=== PATIENT | female | born 1970 | race Two or more races ===

== ENCOUNTER 2016-10-01 10:54 | Emergency (ER) | payer BC ==
[~2016-10-01] VITALS: Ht 160 cm; Wt 84.4 kg
[2016-10-01 11:10] VITALS: BP 134/80
--- NOTE | 2016-10-01 12:15 | PHYS DOC ---
Past Medical History Past Medical History: Diabetes-Type II, Hypertension Past Surgical History: , Tubal ligation Alcohol Use: None Drug Use: None Adult General Chief Complaint Chief Complaint: MECHANICAL FALL HPI HPI Patient is a 46 year old female presents to the emergency department stating that she had fallen at work when she went to get out of her car. She states that she has having lower back pain and coccyx pain and discomfort. She is also having some right shoulder pain and discomfort. She continues to state that when she had gone to the bathroom and had a bowel movement that she had some blood in her stool. This just happened once. She denies any lightheadedness dizziness or any loss of consciousness. She denies any loss of bowel or bladder. [place] any numbness or tingling down lower extremities. Review of Systems Review of Systems Constitutional: Denies fever or chills [] Eyes: Denies change in visual acuity, redness, or eye pain [] HENT: Denies nasal congestion or sore throat [] Respiratory: Denies cough or shortness of breath [] Cardiovascular: No additional information not addressed in HPI [] Musculoskeletal: lower back and sacrum pain, right shoulder pain Integument: Denies rash or skin lesions [] Neurologic: Denies headache, focal weakness or sensory changes [] Allergies Allergies Allergies Coded Allergies Type Severity Reaction Last Updated Verified No Known Drug Allergies 10/01/16 No Physical Exam Physical Exam Constitutional: Well developed, well nourished, no acute distress, non-toxic appearance. [] HENT: Normocephalic, atraumatic, bilateral external ears normal, oropharynx moist, no oral exudates, nose normal. [] Eyes: PERRLA, EOMI, conjunctiva normal, no discharge. [] Neck: Normal range of motion, no tenderness, supple, no stridor. [] Cardiovascular:Heart rate regular rhythm, no murmur [] Lungs & Thorax: Bilateral breath sounds clear to auscultation [] Skin: Warm, dry, no erythema, no rash. [] Back: No cervical spine or thoracic spine tenderness, step-offs no deformities and no crepitus noted. Patient did have a lumbar and sacral pain and discomfort. There were no step-offs deformities or crepitus noted. Extremities: Right shoulder tenderness, no cyanosis, no clubbing, ROM intact, no edema. Patient with full range of motion peripheral pulses 2+ cap refill brisk less than 2 seconds. Neurologic: Alert and oriented X 3, normal motor function, normal sensory function, no focal deficits noted. [] Psychologic: Affect normal, judgement normal, mood normal. [] Current Patient Data Vital Signs Vital Signs Date Time Temp Pulse Resp B/P Pulse Ox O2 Delivery O2 Flow Rate FiO2 10/01/16 11:10 98.0 93 18 95 Room Air 98.0 Lab Values Laboratory Tests Test 10/01/16 12:25 Stool Occult Blood Negative (NEG) EKG EKG [] Radiology/Procedures Radiology/Procedures [address] [id number] IMAGING REPORT Signed PATIENT: RUSS GRIFFIN ACCOUNT: [id number] : 1970 LOCATION: ER AGE: 46 SEX: F EXAM STATUS: REG ER ORD. PHYSICIAN: TYLER PRETTY NP REASON: fall pain PROCEDURE: LUMBAR SPINE 2-3V Lumbar spine radiographs History: Fall, pain. Comparison: None. Findings: AP and lateral views lumbar spine, 3 images. 5 lumbar type vertebral bodies are present. No acute fracture or acute malalignment is identified. Degenerative disc disease is seen at L1-2 and L5-S1. Mild multilevel facet degeneration is seen. Impression: No acute osseous traumatic injury identified lumbar spine. DICTATED and SIGNED BY: SHIRLEY POWERS MD DATE: 10/01/16 1232 CC: TYLER PRETTY [employer]RO[employer]; NON,STAFF ~ [[address] [id number] IMAGING REPORT Signed PATIENT: RUSS GRIFFIN ACCOUNT: [id number] : 1970 LOCATION: ER AGE: 46 SEX: F EXAM STATUS: REG ER ORD. PHYSICIAN: TYLER PRETTY NP REASON: fall pain to coccyx area PROCEDURE: SACRUM & COCCYX 3V Sacrococcygeal radiographs History: Fall, pain. Comparison: None. Findings: Frontal and lateral views of the sacrum and coccyx, 3 images. No convincing acute fracture is seen. The coccyx demonstrates apex dorsal angulation of lower segments, but this can be a normal finding. Impression: No acute osseous traumatic injury identified. DICTATED and SIGNED BY: SHIRLEY POWERS MD DATE: 10/01/16 1233 CC: TYLER PRETTY NP; NON,STAFF ~ [facility] [address] [place] [address] IMAGING REPORT Signed PATIENT: RUSS GRIFFIN ACCOUNT: [id number] : 1970 LOCATION: ER AGE: 46 SEX: F EXAM STATUS: REG ER ORD. PHYSICIAN: TYLER PRETTY NP REASON: fall pain to coccyx area PROCEDURE: SHOULDER 2+V RIGHT Right shoulder radiographs History: Fall, right shoulder pain. Comparison: None. Findings: AP internal rotation, AP external rotation, and scapular Y-view of the right shoulder. No acute fracture dislocation is identified. Impression: No acute osseous traumatic injury identified. DICTATED and SIGNED BY: SHIRLEY POWERS MD DATE: 10/01/16 123 CC: TYLER PRETTY NP; NON,STAFF ~ ] Course & Med Decision Making Course & Med Decision Making Pertinent Labs and Imaging studies reviewed. (See chart for details) Rectal exam was completed with no active bleeding noted upon exam. No hemorrhoids noted. Rectal was negative for blood. X-rays appear to be negative. Patient will be recommended to use ibuprofen 800 mg every 8 hours with food stop taking few develop an upset stomach. Also recommended ice packs on 20 minutes off 20 minutes several times a day. Patient will be provided with Flexeril which she has been told that this medication will be causing drowsiness do not take any be alert and oriented. Also recommended patient to follow up with her primary care physician if she should notice any further blood in her stools. Urine dip was negative for blood. Patient will be discharged home in stable condition since symptoms to return back to emergency department as been provided. Patient agrees with discharge instructions treatment regimens and follow-up recommendations. [] Dragon Disclaimer Dragon Disclaimer This electronic medical record was generated, in whole or in part, using a voice recognition dictation system. Departure Departure Impression: Primary Impression: Fall Additional Impressions: Low back strain Sacral pain Disposition: HOME, SELF-CARE Condition: STABLE Referrals: NON,STAFF (PCP) Patient Instructions: Back Pain, Adult, [id number], Fall Prevention and Home Safety, [id number], Tailbone Injury, [id number] Additional Instructions: Activity as tolerated. Ice packs on 20 minutes off 20 minutes several times a day. Ibuprofen 800 mg every 8 hours with food stop taking if he developed upset stomach. Flexeril will cause drowsiness do not take any be alert and oriented. Followup with your primary care physician in the next 3-5 days in regards to blood being in her stools. Return back to emergency department sign symptoms become worse. Scripts Cyclobenzaprine Hcl 10 Mg [id number] Mg PO TID #20 TAB Prov:TYLER PRETTY NP 10/01/16 Problem Qualifiers TYLER PRETTY NP Oct 01, 2016 12:15
--- NOTE | 2016-10-01 12:35 | RAD ---
Lumbar spine radiographs History: Fall, pain. Comparison: None. Findings: AP and lateral views lumbar spine, 3 images. 5 lumbar type vertebral bodies are present. No acute fracture or acute malalignment is identified. Degenerative disc disease is seen at L1-2 and L5-S1. Mild multilevel facet degeneration is seen. Impression: No acute osseous traumatic injury identified lumbar spine.
--- NOTE | 2016-10-01 12:36 | RAD ---
Right shoulder radiographs History: Fall, right shoulder pain. Comparison: None. Findings: AP internal rotation, AP external rotation, and scapular Y-view of the right shoulder. No acute fracture dislocation is identified. Impression: No acute osseous traumatic injury identified.
--- NOTE | 2016-10-01 12:37 | RAD ---
Sacrococcygeal radiographs History: Fall, pain. Comparison: None. Findings: Frontal and lateral views of the sacrum and coccyx, 3 images. No convincing acute fracture is seen. The coccyx demonstrates apex dorsal angulation of lower segments, but this can be a normal finding. Impression: No acute osseous traumatic injury identified.
[2016-10-01 12:52] LABS: NEG OBC FOB NEG; POS OBC FOB POS
[2016-10-01] MEDS ORDERED: CYCL10TA2 PO (12:54)
== END 2016-10-01 13:01 | disposition home or self-care (01) ==
LOC: ER 10:54
DX: S39.012A Strain of muscle, fascia and tendon of lower back, initial encounter (principal); M53.3 Sacrococcygeal disorders, not elsewhere classified; M25.511 Pain in right shoulder; I10 Essential (primary) hypertension; E11.9 Type 2 diabetes mellitus without complications; Z98.51 Tubal ligation status; Z98.890 Other specified postprocedural states; W19.XXXA Unspecified fall, initial encounter; Y93.89 Activity, other specified; Y99.8 Other external cause status; Y92.89 Other specified places as the place of occurrence of the external cause
CPT/HCPCS: 72100; 72220; 73030; 82274; 99285-25